=== PATIENT | female | born 1990 | race Two or more races ===

== ENCOUNTER 2017-01-17 14:31 | Emergency (ER) | payer MEDICAID, SELFPAY ==
[2017-01-17 15:02] VITALS: BP 127/90
--- NOTE | 2017-01-17 17:10 | EDM.PDOC ---
ED HPI GI/ABDOMINAL - General Chief Complaint: Abdominal Pain Stated Complaint: POST-SURGICAL PAIN Time Seen by Provider: 01/17/17 17:10 Source of Information: Reports: Patient History Limitations: Reports: No limitations - History of Present Illness INITIAL COMMENTS - FREE TEXT/NARRATIVE: 26-year-old female presents the ED with 3 children. Her chief complaint is diffuse lower back pain with no reported injury. Also complaining of diffuse lower abdominal pain since her was performed back in July of last year. Dr. Emilio Ann performed the . She states she's sleeping on a firm mattress. She reports the pain in her abdomen it is constant with sharp stabbing and burning suggestive of neuropathic pain and it could well been under injury during the surgical procedure. She has had problems with intermittent low back pain but never to the point that she has at this time. She apparently has had followup with Dr. Ann in regards to the abdominal pain. It's unclear whether there is any suggestion of adhesions at this time or whether further investigation is warranted. In regards to her back is stiff and sore and painful to move throughout both sides of her lower back. No associated fever or chills. Other complaints his bowels are moving quite slowly. Symptom Onset Date: 08/22/16 (Since she's had abdominal pain. Back pain is been off-and-on since as well but much worse the last 4 days.) Timing/Duration: Reports: Week(s):, Constant Location: other (Diffuse lower back pain bilaterally. Abdominal pain is just above her in the midline where we opened up the rectus abdominis musculature and peritoneum to expose the uterus..) Quality: Reports: burning, stabbing Severity: moderate Improves with: Denies: defecating Worsens with: Reports: other (Walking and movement. Coughing or sneezing.). Denies: defecating Context: Reports: recent surgery ( was done in July last year.). Denies: sick contact, bad/questionable food, out of country travel, recent trauma, lifting, activity/exercise, other Associated Symptoms (-Female): Reports: back pain, constipation, malaise. 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, NSAIDS (Motrin) - Related Data Allergies/ADRs: Allergies Allergy/AdvReac Type Severity Reaction Status Date / Time cephalexin monohydrate Allergy Cannot Verified 01/17/17 15:05 [From Kelucio] Remember Home Meds: Home Meds Vits #90/Iron Fum/FA [ Formula] 1 tab PO DAILY 08/08/16 [ History] Acetaminophen/oxyCODONE [Percocet 325-5 MG] 2 tab PO Q6H PRN #50 tablet [Rx] Docusate Sodium [Colace] 100 mg PO Q12H PRN #0 cap 08/11/16 [Rx] Ibuprofen [IJD: Ibuprofen] 600 mg PO Q6H PRN #0 tablet 08/11/16 [Rx] Simethicone 80 mg PO PCBED tab.chew 08/11/16 [Rx] Meloxicam 15 mg PO DAILY #30 tablet 01/17/17 [Rx] oxyCODONE HCl/Acetaminophen [Percocet 5-325 mg Tablet] 1 - 2 each PO Q4H PRN # 20 tablet 01/17/17 [Rx] predniSONE [Deltasone] 20 mg PO ASDIRECTED #18 tablet 01/17/17 [Rx] Past Medical History - Past Health History Medical/Surgical History: Denies 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: , Spontaneous , Therapeutic - Infectious Disease History Infectious Disease History: Reports: Chicken pox - Past Surgical History Female Surgical History: Reports: section, D&C Social & Family History - Family History Family Medical History: Noncontributory - Tobacco Use Smoking Status *Q: Never Smoker Second Hand Smoke Exposure: No - Caffeine Use Caffeine Use: Reports: None - Alcohol Use Days Per Week of Alcohol Use: 0 - Recreational Drug Use Recreational Drug Use: No - Living Situation & Occupation Living situation: Reports: Occupation: unemployed ED ROS GENERAL - Review of Systems Review Of Systems: See Below (Still mom.) Constitutional: Reports: weakness, fatigue, decreased appetite. Denies: fever, chills, malaise, weight loss HEENT: Reports: No symptoms Respiratory: Reports: No Symptoms Cardiovascular: Reports: No symptoms Endocrine: Reports: no symptoms GI/Abdominal: Reports: Abdominal pain (Chronic abdominal pain midline since having performed in July last year.), Constipation (Intermittent problems with constipation) : Reports: no symptoms Musculoskeletal: Reports: back pain (Diffuse intermittent problems with low back pain much worse recently. She can hardly walk today because of the pain) Skin: Reports: no symptoms Neurological: Reports: No Symptoms Psychiatric: Reports: No symptoms ED EXAM, GI/ABD - Physical Exam Exam: See Below Exam Limited By: No limitations General Appearance: alert, moderate distress (She moves very slowly due to back pain. Has a difficult time getting on the gurney for examination of the abdomen. ) Respiratory/Chest: no respiratory distress, lungs clear, normal breath sounds, no accessory muscle use Cardiovascular: normal peripheral pulses, regular rate, rhythm, no edema, no gallop, no murmur GI/Abdominal: normal bowel sounds, soft, no distention, other ( wound is sternal incision is healing very well. Her pain appears to be mostly in the midline where there is splitting of the rectus abdominis muscles and the peritoneum. This likely is discouraged take time to heal. It is unusual for a midline neuromas to develop.) Back Exam: normal inspection, vertebral tenderness (She is tender in the facet joints from lumbar 1-5 bilaterally. Minimal muscle tenderness present.), other ( There is tenderness on palpation of both SI joints worse on the right than on the left superior half of the joint.). No: full range of motion, CVA tenderness (L), CVA tenderness (R) Extremities: normal inspection, normal range of motion, non-tender, no pedal edema, normal capillary refill Neurological: alert, oriented, CN II-XII intact, normal cognition, normal gait Psychiatric: normal affect, normal mood Skin Exam: Warm, Dry, Normal color, No rash Course - Vital Signs Last Recorded V/S: Last Vital Signs Temp 36.8 C 01/17/17 14:56 Pulse 67 01/17/17 14:56 Resp 16 01/17/17 14:56 BP 127/90 01/17/17 14:56 Pulse Ox 100 01/17/17 14:56 - Orders/Labs/Meds Orders: Active Orders 24 hr Category Date Time Status KUB [Abdomen 1V Flat] [CR] Stat Exams 01/17/17 17:07 Taken CBC WITH MANUAL DIFF [HEME] Stat Lab 01/17/17 16:30 Results SEDIMENTATION RATE AUTO [HEME] Stat Lab 01/17/17 16:30 Received URINALYSIS W/MICROSCOPIC [UA W/MICROSCOPIC] [URIN] Stat Lab 01/17/17 16:39 Received Labs: Laboratory Tests 01/17/17 01/17/17 01/17/17 Range/Units 16:30 16:30 16:39 WBC 9.43 (3.98-10.04) K/mm3 RBC 4.50 (3.98-5.22) M/mm3 Hgb 13.6 (11.2-15.7) gm/L Hct 40.2 (34.1-44.9) % MCV 89.3 (79.4-94.8) fl MCH 30.2 (25.6-32.2) pg MCHC 33.8 (32.2-35.5) g/dl RDW Std Deviation 43.7 (36.4-46.3) fL Plt Count 380 H (182-369) K/mm3 MPV 11.3 (9.4-12.3) fl Sodium 140 (136-145) mEq/L Potassium 3.7 (3.5-5.1) mEq/L Chloride 105 (98-107) mEq/L Carbon Dioxide 24 (21-32) mEq/L Anion Gap 14.7 (5-15) BUN 14 (7-18) mg/dL Creatinine 0.6 (0.55-1.02) mg/dL Est Cr Clr Drug Dosing 100.27 mL/min Estimated GFR (MDRD) > 60 (>60) mL/min BUN/Creatinine Ratio 23.3 H (14-18) Glucose 92 (74-106) mg/dL Calcium 9.2 (8.5-10.1) mg/dL Total Bilirubin 0.2 (0.2-1.0) mg/dL AST 23 (15-37) U/L ALT 33 (14-59) U/L Alkaline Phosphatase 84 (46-116) U/L C-Reactive Protein 0.2 (<1.0) mg/dL Total Protein 8.2 (6.4-8.2) g/dl Albumin 4.5 (3.4-5.0) g/dl Globulin 3.7 gm/dL Albumin/Globulin Ratio 1.2 (1-2) Urine HCG, Qual Negative (NEGATIVE) - Radiology Interpretation Free Text/Narrative:: -year-old female of [place] descent as is the ED with chronic abdominal pain dating back to July when she had a . She states she' s had pain ever since the operation was performed. Tourniquet identified pain in the midline just above the wound where we opened the rectus abdominis muscles and them and expose the peritoneum. This likely is still muscular and is likely still in the healing process. Unlikely to be neuroma formation in this area since in the midline. Regards to her back it seems that she has intermittent low back pain and she can barely stand and walk today. She has pain on palpation throughout all of the facet joints bilaterally. Plan routine labs including a sedimentation rate and CRP will be performed urinalysis and a KUB will be done. - Re-Assessments/Exams Free Text/Narrative Re-Assessment/Exam: 01/17/17 17:57 KUB reveals increased stool throughout the left hemicolon compatible with constipation. I will suggest the patient in MiraLax powder 17 g daily to see if this does not help with her chronic abdominal pain as well. Lab work including beta hCG in the urine were all normal. Placed her on meloxicam 15 mg once daily to relieve pain and inflammation are back for the next 30 days. Placenta short courses is on 20 mg with breakfast and supper for 6 days then one tablet in the morning only for further 60s to to relieve pain and inflammation particularly in her back. Departure - Departure Time of Disposition: 17:58 Disposition: Home, Self-Care 01 Condition: fair Clinical Impression: Postoperative lower abdominal pain, Acute mechanical low back pain, duration < 6 weeks Prescriptions: Meloxicam 15 mg PO DAILY #30 tablet oxyCODONE HCl/Acetaminophen [Percocet 5-325 mg Tablet] 1 - 2 each PO Q4H PRN # 20 tablet PRN Reason: pain relief. predniSONE [Deltasone] 20 mg PO ASDIRECTED #18 tablet Referrals: PCP,None [Primary Care Provider] - Forms: ED Department Discharge Additional Instructions: Evaluation and management today in regards to diffuse low back pain of unclear etiology. On exam there is facet joint inflammation throughout the sides of her lower back. X-ray of the back bones show no abnormalities. Suggest treatment with daily anti-inflammatory meloxicam 15 mg once daily for 30 days to take away the inflammation. Regular activity such as swimming may help alleviate a good view of the back pain his muscles become stronger. Core muscle strengthening exercises are recommended to strengthen the muscles around the back bones. 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 In regards to the abdominal pain postoperative C- sections is still likely that there is underlying healing of the musculature of the abdominal wall. No hernias on examination. The incision the incision itself is healing very well. Since time of the midline where the muscles have been split and the operation. Sometimes the fascia and the muscles will take a year to completely heal after major surgery. X-ray of the abdomen otherwise did reveal increased stool throughout the left hemicolon and down to the rectum compatible with mild constipation. I would suggest trying MiraLax powder in taking one scoop once daily for the next month to see if this does not help abdominal pain and will certainly keep your bowels regular. Followup with Dr. Ann abdominal pain continues. - My Orders Last 24 Hours: My Active Orders 01/17/17 16:30 CBC WITH MANUAL DIFF [HEME] Stat SEDIMENTATION RATE AUTO [HEME] Stat 01/17/17 16:39 URINALYSIS W/MICROSCOPIC [UA W/MICROSCOPIC] [URIN] Stat 01/17/17 17:07 KUB [Abdomen 1V Flat] [CR] Stat - Assessment/Plan Last 24 Hours: My Active Orders 01/17/17 16:30 CBC WITH MANUAL DIFF [HEME] Stat SEDIMENTATION RATE AUTO [HEME] Stat 01/17/17 16:39 URINALYSIS W/MICROSCOPIC [UA W/MICROSCOPIC] [URIN] Stat 01/17/17 17:07 KUB [Abdomen 1V Flat] [CR] Stat
--- NOTE | 2017-01-18 09:51 | CR ---
Abdomen: Supine view of the abdomen was obtained. Comparison: No previous abdominal x-ray. IUD noted within the pelvis. Bowel gas pattern appears unremarkable. No abnormal calcifications or soft tissue abnormality is seen. Impression: 1. Nonspecific supine abdominal x-ray. Diagnostic code #2
== END 2017-01-17 18:14 | disposition home or self-care (01) ==
LOC: JD.ED 14:31
DX: G89.18 Other acute postprocedural pain (principal); R10.30 Lower abdominal pain, unspecified; M54.5 Low back pain; K59.00 Constipation, unspecified; Z88.1 Allergy status to other antibiotic agents; Z79.899 Other long term (current) drug therapy
CPT/HCPCS: 36415; 74000; 74000-26; 80053; 81001; 81025; 85025; 85652; 86140; 99283; 99284

== ENCOUNTER 2017-05-26 19:51 | Emergency (ER) | payer MEDICAID ==
[2017-05-26 20:10] VITALS: BP 112/79
--- NOTE | 2017-05-26 20:51 | EDM.PDOC ---
ED HPI GENERAL MEDICAL PROBLEM - General Chief Complaint: Lower Extremity Injury/Pain Stated Complaint: RT LEG INJURY Time Seen by Provider: 05/26/17 20:03 Source of Information: Reports: Patient History Limitations: Reports: No Limitations - History of Present Illness INITIAL COMMENTS - FREE TEXT/NARRATIVE: This is a 27-year-old female. She apparently hit her foot on the pool when she was getting out and then she is not certain what she might have done to the side of her foot maybe she stepped wrong or something but her foot is hurting her and she comes to the ER. Apparently she hobbled into the ER and drove herself here. She denies any other acute symptoms but is persistently asking for something for pain due to her foot pain. I explained to her nicely and we had to get x-rays on her foot before I would provide pain medications and then she needs someone to take her home so she has to have a ride. She states she understands. 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: , Spontaneous , Therapeutic - Infectious Disease History Infectious Disease History: Reports: Chicken Pox - Past Surgical History Female Surgical History: Reports: Section, D&C Social & Family History - Family History Family Medical History: Noncontributory - Tobacco Use Smoking Status *Q: Never Smoker Second Hand Smoke Exposure: No - Caffeine Use Caffeine Use: Reports: None - Alcohol Use Days Per Week of Alcohol Use: 0 - Recreational Drug Use Recreational Drug Use: No - Living Situation & Occupation Living situation: Reports: Occupation: Unemployed Review of Systems - Review of Systems Review Of Systems: See Below Constitutional: Reports: No Symptoms Eyes: Reports: No Symptoms Ears: Reports: No Symptoms Nose: Reports: No Symptoms Mouth/Throat: Reports: No Symptoms Respiratory: Reports: No Symptoms Cardiovascular: Reports: No Symptoms GI/Abdominal: Reports: No Symptoms Genitourinary: Reports: No Symptoms Musculoskeletal: Reports: Other (As per history of present illness) Skin: Reports: No Symptoms Neurological: Reports: Headache Psychiatric: Reports: No Symptoms ED EXAM, GENERAL - Physical Exam Exam: See Below Exam Limited By: No Limitations General Appearance: Alert, WD/WN, No Apparent Distress, Other (She does complain a lot of foot pain and wants to argue about pain medications) Eye Exam: Bilateral Eye: Normal Inspection Ears: Normal External Exam Nose: Normal Inspection Throat/Mouth: Normal Inspection, Normal Lips, Normal Voice Head: Normocephalic Neck: Supple Respiratory/Chest: No Respiratory Distress Back Exam: Full Range of Motion Extremities: Other (Right foot over the medial dorsal foot she has tenderness there but no swelling on the lateral foot however over the fourth and fifth proximal metatarsals there is swelling noted there and tender on palpation, there is no ankle injury and she complains of her toes being numb but she does have some feeling with touch, there is no toe injury noted) Neurological: Alert, Oriented Psychiatric: Normal Affect, Normal Mood Skin Exam: Warm, Dry Course - Vital Signs Last Recorded V/S: Last Vital Signs Temp 96.7 F 05/26/17 20:05 Pulse 78 05/26/17 20:05 Resp 18 05/26/17 20:05 BP 112/79 05/26/17 20:05 Pulse Ox 97 05/26/17 20:05 - Orders/Labs/Meds Orders: Active Orders 24 hr Category Date Time Status Foot Comp Min 3V Rt [CR] Stat Exams 05/26/17 20:50 Taken DME for Discharge [COMM] Stat Oth 05/26/17 21:23 Ordered - Radiology Interpretation Free Text/Narrative:: X-ray shows a base of the fifth metatarsal fracture - Re-Assessments/Exams Free Text/Narrative Re-Assessment/Exam: 05/26/17 21:32 I spoke to the patient regarding the x-ray results. Once her father gets here I will provide her with something for pain and then I'll provide a prescription and she will follow up with Dr. Blunt on Sunday. 05/26/17 21:38 Patient does not have anyone here that can drive her home so I'll give her some Toradol IM and a prescription for some pain medications. Departure - Departure Time of Disposition: 21:39 Disposition: Home, Self-Care 01 Condition: Good Clinical Impression: Fracture of base of fifth metatarsal bone of right foot at metaphyseal- diaphyseal junction Qualifiers: Encounter type: initial encounter Fracture type: closed Qualified Code(s): S99.191A - Other physeal fracture of right metatarsal, initial encounter for closed fracture - Discharge Information Prescriptions: Hydrocodone/Acetaminophen [Hydrocodon-Acetaminophen 5-325] 1 each PO Q6H PRN # 15 tablet PRN Reason: Pain Referrals: Ravi Westfall MD [Physician] - Forms: ED Department Discharge Additional Instructions: Use the shoe and the crutches at all times since your right foot is broken, follow-up with Dr. Westfall' on Sunday by calling his office Sunday morning for an appointment, take the medication as needed for pain, return to the ER if needed - My Orders Last 24 Hours: My Active Orders 05/26/17 20:50 Foot Comp Min 3V Rt [CR] Stat 05/26/17 21:23 DME for Discharge [COMM] Stat - Assessment/Plan Last 24 Hours: My Active Orders 05/26/17 20:50 Foot Comp Min 3V Rt [CR] Stat 05/26/17 21:23 DME for Discharge [COMM] Stat
[2017-05-26] MEDS ORDERED: Ketorolac 60 MG/2 ML SDV IM ONE (21:43)
--- NOTE | 2017-05-28 08:15 | CR ---
Right foot: Four views of the right foot were obtained. Slightly comminuted fracture is identified within the base of the fifth metatarsal. Alignment remains close to anatomic. Small bony density is seen off the dorsal navicular bone believed to be old and normal variant. No additional fracture or other bony abnormality is seen. Impression: 1. Comminuted fracture remaining close to anatomic in alignment involving the base of the right fifth metatarsal. 2. No other acute abnormality is seen. Diagnostic code #3
== END 2017-05-26 22:00 | disposition home or self-care (01) ==
LOC: JD.ED 19:51
DX: S99.191A Other physeal fracture of right metatarsal, initial encounter for closed fracture (principal); Z88.1 Allergy status to other antibiotic agents; W22.8XXA Striking against or struck by other objects, initial encounter
CPT/HCPCS: 73630; 96372; 99283; J1885

== ENCOUNTER 2018-11-20 19:44 | Emergency (ER) | payer MEDICAID, OTHER ==
[2018-11-20 19:51] VITALS: BP 142/82
--- NOTE | 2018-11-20 20:11 | EDM.PDOC ---
ED HPI GENERAL MEDICAL PROBLEM - General Chief Complaint: Back Pain or Injury Stated Complaint: BACK PAIN Time Seen by Provider: 11/20/18 19:55 Source of Information: Reports: Patient History Limitations: Reports: No Limitations - History of Present Illness INITIAL COMMENTS - FREE TEXT/NARRATIVE: The patient slipped and fell today and landed on her buttocks. She has low back pain. She has generalized weakness and pain with moving She has no bowel or bladder problems. She did not hit her head or hurt her neck. Onset: Sudden Duration: Hour(s): Location: Reports: Back (Low) Quality: Reports: Sharp Severity: Moderate Improves with: Reports: Immobilization Worsens with: Reports: Movement Context: Reports: Trauma (Slipped and fell on the ice) Associated Symptoms: Reports: No Other Symptoms Back Pain Score (Numeric/FACES): 10 - Related Data Allergies Allergy/AdvReac Type Severity Reaction Status Date / Time cephalexin monohydrate Allergy Cannot Verified 11/20/18 19:51 [From Keflex] Remember Home Meds: Home Meds Naproxen [Naprosyn] 500 mg PO Q12HR #20 tab 11/20/18 [Rx] Orphenadrine [Norflex] 100 mg PO BID PRN #20 tab 11/20/18 [Rx] Past Medical History - Past Health History Medical/Surgical History: Denies 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: , Spontaneous , Therapeutic - Infectious Disease History Infectious Disease History: Reports: Chicken Pox - Past Surgical History Female Surgical History: Reports: Section, D&C Social & Family History - Family History Family Medical History: Noncontributory - Tobacco Use Smoking Status *Q: Never Smoker Second Hand Smoke Exposure: No - Caffeine Use Caffeine Use: Reports: Coffee - Recreational Drug Use Recreational Drug Use: No - Living Situation & Occupation Living situation: Reports: Occupation: Unemployed ED ROS GENERAL - Review of Systems Review Of Systems: See Below Constitutional: Reports: No Symptoms HEENT: Reports: No Symptoms Respiratory: Reports: No Symptoms Cardiovascular: Reports: No Symptoms Endocrine: Reports: No Symptoms GI/Abdominal: Reports: No Symptoms : Reports: No Symptoms Musculoskeletal: Reports: Back Pain ED EXAM,LOWER BACK PAIN/INJURY - Physical Exam Exam: See Below Exam Limited By: No Limitations General Appearance: Alert, No Apparent Distress Ears: Normal External Exam Nose: Normal Inspection Head: Atraumatic, Normocephalic Neck: Normal Inspection Respiratory/Chest: No Respiratory Distress, Lungs Clear, Normal Breath Sounds Cardiovascular: Regular Rate, Rhythm, No Edema, No Murmur GI/Abdominal: Soft, Non-Tender, No Organomegaly, No Mass Back Exam: Vertebral Tenderness (Upper lower back) Neurological: Alert, No Motor/Sensory Deficits, Oriented x 3 Course - Vital Signs Last Recorded V/S: Last Vital Signs Temp 96.6 F 11/20/18 19:50 Pulse 63 11/20/18 19:50 Resp 16 11/20/18 19:50 BP 142/82 H 11/20/18 19:50 Pulse Ox 99 11/20/18 19:50 - Orders/Labs/Meds Orders: Active Orders 24 hr Category Date Time Status Lumbar Spine 2 or 3V [CR] Stat Exams 11/20/18 20:07 Taken - Re-Assessments/Exams Free Text/Narrative Re-Assessment/Exam: 11/20/18 20:10 I have ordered an x-ray of her lumbar spine. 11/20/18 21:05 Her x-ray looks good. Departure - Departure Time of Disposition: 21:10 Disposition: Home, Self-Care 01 Condition: Good Clinical Impression: Fall Qualifiers: Encounter type: initial encounter Qualified Code(s): W19.XXXA - Unspecified fall, initial encounter Low back pain Qualifiers: Chronicity: acute Back pain laterality: bilateral Sciatica presence: without sciatica Qualified Code(s): M54.5 - Low back pain - Discharge Information *PRESCRIPTION DRUG MONITORING PROGRAM REVIEWED*: No *COPY OF PRESCRIPTION DRUG MONITORING REPORT IN PATIENT BERNY: No Prescriptions: Naproxen [Naprosyn] 500 mg PO Q12HR #20 tab Orphenadrine [Norflex] 100 mg PO BID PRN #20 tab PRN Reason: Pain Referrals: PCP,None [Primary Care Provider] - Milla Soto PA-C [Physician It Programmer] - 1 Week Forms: ED Department Discharge, ED Return to Work/School Form Additional Instructions: Take the norflex every 12 hours as needed for pain. You can also use the naprosyn every 12 hours as needed for pain. Follow up with Iesha Soto if you are not better. - My Orders Last 24 Hours: My Active Orders 11/20/18 20:07 Lumbar Spine 2 or 3V [CR] Stat - Assessment/Plan Last 24 Hours: My Active Orders 11/20/18 20:07 Lumbar Spine 2 or 3V [CR] Stat
--- NOTE | 2018-11-21 06:35 | CR ---
Lumbar spine: AP and lateral views of the lumbar spine were obtained. Comparison: Previous lumbar spine study of 04/26/17. Incidental IUD is noted within the pelvis. Minimal scoliosis is noted. Vertebral body heights and disc spaces are maintained. Pedicles are intact. Visualized transverse and spinous processes are intact. Sacroiliac joints appear within normal limits. Impression: 1. Incidental findings. Nothing acute is seen. Diagnostic code #2
== END 2018-11-20 21:17 | disposition home or self-care (01) ==
LOC: JD.ED 19:44
DX: M54.5 Low back pain (principal); Z88.1 Allergy status to other antibiotic agents; W01.0XXA Fall on same level from slipping, tripping and stumbling without subsequent striking against object, initial encounter
CPT/HCPCS: 72100; 72100-26; 99283

== ENCOUNTER 2018-12-21 10:05 | Emergency (ER) | payer SELFPAY ==
--- NOTE | 2018-12-21 11:12 | EDM.PDOC ---
ED HPI GENERAL MEDICAL PROBLEM - General Chief Complaint: Upper Extremity Injury/Pain Stated Complaint: FALL HEAD AND ARM INJURY Time Seen by Provider: 12/21/18 10:19 Source of Information: Reports: Patient History Limitations: Reports: No Limitations - History of Present Illness INITIAL COMMENTS - FREE TEXT/NARRATIVE: The patient presents with a fall. She slipped on the ice before arrival. She did hit her head and hurt her right shoulder and right hip. She thinks she may have been knocked out for a few seconds. She has right lateral neck pain but that is more from the shoulder. She has no abdominal pain, nausea or vomiting. She does have some chest pain with deep breathing. She has right hip pain with walking. Onset: Sudden Duration: Minutes: Location: Reports: Head, Neck, Upper Extremity, Right (shoulder), Lower Extremity, Right (hip) Quality: Reports: Sharp Severity: Severe Improves with: Reports: Immobilization Worsens with: Reports: Movement Context: Reports: Trauma (Slipped and fell on the ice) Associated Symptoms: Reports: Chest Pain, Headaches. 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: , Spontaneous , Therapeutic - Infectious Disease History Infectious Disease History: Reports: Chicken Pox - Past Surgical History Female Surgical History: Reports: Section, D&C Social & Family History - Family History Family Medical History: Noncontributory - Tobacco Use Smoking Status *Q: Current Some Day Smoker Years of Tobacco use: 5 Packs/Tins Daily: 0.1 - Caffeine Use Caffeine Use: Reports: Coffee - Recreational Drug Use Recreational Drug Use: No - Living Situation & Occupation Living situation: Reports: Occupation: Unemployed Review of Systems - Review of Systems Review Of Systems: See Below Constitutional: Reports: No Symptoms Eyes: Reports: No Symptoms Ears: Reports: No Symptoms Nose: Reports: No Symptoms Mouth/Throat: Reports: No Symptoms Respiratory: Reports: No Symptoms Cardiovascular: Reports: Chest Pain GI/Abdominal: Reports: No Symptoms Genitourinary: Reports: No Symptoms Musculoskeletal: Reports: Neck Pain, Shoulder Pain (right) Neurological: Reports: Headache ED EXAM, GENERAL - Physical Exam Exam: See Below Exam Limited By: No Limitations General Appearance: Alert, No Apparent Distress Ears: Normal External Exam Nose: Normal Inspection Head: Other (Pain upon palpation to the righ occipital region) Neck: Other (Mild tenderness to the right neck at the base of the neck to the shoulder) Respiratory/Chest: No Respiratory Distress, Lungs Clear, Normal Breath Sounds Cardiovascular: Regular Rate, Rhythm, No Edema, No Murmur GI/Abdominal: Soft, Non-Tender, No Organomegaly, No Mass Back Exam: Normal Inspection Extremities: Other (Pain upon palpation to the right posterior shoulder. Pain upon palpation to the right elbow. Good sensation and pulses distally. Pain upon palpation to the right hip with good sensation and pulses distally.) Course - Vital Signs Last Recorded V/S: Last Vital Signs Temp 97.3 F 12/21/18 10:09 Pulse 97 12/21/18 10:09 Resp 18 12/21/18 10:09 BP 152/112 H 12/21/18 10:09 Pulse Ox 100 12/21/18 10:09 - Orders/Labs/Meds Orders: Active Orders 24 hr Category Date Time Status Elbow 2V Rt [CR] Stat Exams 12/21/18 10:29 Taken Hip Min 2V or 3V w Pelvis Rt [CR] Stat Exams 12/21/18 10:30 Taken Shoulder Comp Rt [CR] Stat Exams 12/21/18 10:29 Taken Meds: Medications Discontinued Medications Generic Name Dose Route Start Last Admin Trade Name Freq PRN Reason Stop Dose Admin Acetaminophen 975 mg 12/21/18 11:51 12/21/18 12:04 Tylenol PO 12/21/18 11:52 975 mg NOW ONE Administration - Re-Assessments/Exams Free Text/Narrative Re-Assessment/Exam: 12/21/18 12:24 I x-rayed her right hip, right elbow and right shoulder and there was no fractures. I did a CT of her head and that looks good. She had more pain so I ordered some tylenol. I will discharge her home. Departure - Departure Time of Disposition: 12:30 Disposition: Home, Self-Care 01 Condition: Good Clinical Impression: Fall Qualifiers: Encounter type: initial encounter Qualified Code(s): W19.XXXA - Unspecified fall, initial encounter Contusion of right hip Qualifiers: Encounter type: initial encounter Qualified Code(s): S70.01XA - Contusion of right hip, initial encounter Contusion of right shoulder Qualifiers: Encounter type: initial encounter Qualified Code(s): S40.011A - Contusion of right shoulder, initial encounter Contusion of right elbow Qualifiers: Encounter type: initial encounter Qualified Code(s): S50.01XA - Contusion of right elbow, initial encounter - Discharge Information *PRESCRIPTION DRUG MONITORING PROGRAM REVIEWED*: No *COPY OF PRESCRIPTION DRUG MONITORING REPORT IN PATIENT BERNY: No Prescriptions: traMADol [Ultram] 50 mg PO Q6H PRN #10 tab PRN Reason: Pain Referrals: PCP,None [Primary Care Provider] - Pippa Mike PA-C [Physician Telephone Mechanic] - 1 Week Forms: ED Department Discharge Additional Instructions: Ice the areas that hurt for 15 minutes 3 times per day for 2 days. Take tylenol or motrin for pain. If that does not help take the ultram as needed. Follow up with Pippa Mike in our clinic within a week. Please return if you are worse. - My Orders Last 24 Hours: My Active Orders 12/21/18 10:29 Elbow 2V Rt [CR] Stat Shoulder Comp Rt [CR] Stat 12/21/18 10:30 Hip Min 2V or 3V w Pelvis Rt [CR] Stat - Assessment/Plan Last 24 Hours: My Active Orders 12/21/18 10:29 Elbow 2V Rt [CR] Stat Shoulder Comp Rt [CR] Stat 12/21/18 10:30 Hip Min 2V or 3V w Pelvis Rt [CR] Stat
[2018-12-21] MEDS ORDERED: Acetaminophen 325 MG Tab PO ONE (11:51)
--- NOTE | 2018-12-21 12:15 | CT ---
Head CT Technique: Multiple axial sections through the brain were obtained. Intravenous contrast was not utilized. Comparison: No prior intracranial imaging. Findings: Ventricles along the basal cisterns and sulci over convexities are within normal limits for the patient's age. No abnormal parenchymal densities are seen. No evidence of intracranial hemorrhage. No midline shift or mass effect is seen. Bone window settings were reviewed which shows no acute calvarial abnormality. Visualized sinuses are clear. Impression: 1. Nothing acute is seen on noncontrast head CT study. Diagnostic code #1
[2018-12-21 12:52] VITALS: BP 132/87
--- NOTE | 2018-12-22 13:59 | CR ---
Right elbow: Two views of the right elbow were obtained. Comparison: No prior available exam. Joint spaces are maintained. No joint effusion is seen. No acute fracture or other bony abnormality is identified. Impression: 1. No abnormality is appreciated on two-view right elbow study. Diagnostic code #1
--- NOTE | 2018-12-22 13:59 | CR ---
Pelvis and right hip: AP view of the pelvis was obtained as well as AP and frog-leg lateral views of the right hip. Comparison: No prior pelvis or right hip exam. Joint spaces within both hips are maintained. Sacroiliac joints are within normal limits. IUD is present within the pelvis. Small calcification is noted within the superior labrum which is incidental off the right hip. No acute fracture or other abnormality is seen. Impression: 1. Incidental finding. Nothing acute is seen. Diagnostic code #2
--- NOTE | 2018-12-22 13:59 | CR ---
Right shoulder: Three views of the right shoulder were obtained. Comparison: No prior shoulder exam. Glenohumeral joint and acromioclavicular joint appear within normal limits. No acute fracture, dislocation or other bony abnormality is seen. Impression: 1. No abnormality is appreciated on right shoulder study. Diagnostic code #1
== END 2018-12-21 12:37 | disposition home or self-care (01) ==
LOC: JD.ED 10:05
DX: S70.01XA Contusion of right hip, initial encounter (principal); S40.011A Contusion of right shoulder, initial encounter; S50.01XA Contusion of right elbow, initial encounter; M54.2 Cervicalgia; R51 Headache; Z88.1 Allergy status to other antibiotic agents; F17.210 Nicotine dependence, cigarettes, uncomplicated; W00.0XXA Fall on same level due to ice and snow, initial encounter
CPT/HCPCS: 70450; 73030; 73070; 73502; 99284; A9270; 99283